=== PATIENT | female | born 2000 | race Caucasian/White ===

== ENCOUNTER → 2021-05-16 | Outpatient (CLI) | payer MEDICARE, OTHER ==
[~2021-05-16] MED LIST: BENTYL 20MG TAB20 MG PO; KEFLEX CAP 500500 MG PO; OMEPRAZOLE20 M1 PO; ONDANSETRON ODT4 MG PO; ZOFRAN ODT 4 MG4 MG PO
== END ==
LOC: RAD 15:45
DX: M25.562 Pain in left knee (principal); M25.561 Pain in right knee; M25.551 Pain in right hip
CPT/HCPCS: 73502; 73560